=== PATIENT | female | born 1985 | race Hispanic/Latino ===

== ENCOUNTER 2018-08-03 15:30 | Emergency (ER) | payer OTHER | END 2018-08-03 18:07 | disposition home or self-care (01) | LOC: M ED 15:30 | DX: F43.20 Adjustment disorder, unspecified (principal); F31.9 Bipolar disorder, unspecified; Z79.899 Other long term (current) drug therapy; F17.210 Nicotine dependence, cigarettes, uncomplicated | CPT/HCPCS: 99284 ==